=== PATIENT | female | born 1950 | race Caucasian/White ===

== ENCOUNTER 2020-01-07 10:48 | Day surgery (SDC) | payer MEDICARE, SELFPAY ==
[2020-01-07 11:14] VITALS: BP 155/85; PULSE 173; RESP 16; TEMP 36.7; O2SAT 97; BMI 15.4
[2020-01-07] MEDS: sodium chloride 0.9% 1,000 ML 30 ML IV (11:37)
--- NOTE | 2020-01-07 11:48 | P.ANESASSM_ITS ---
Pre-Anesthetic Assessment Pre-Anesthetic Assessment: Height/Weight: Height 1.63 m Weight 40.823 kg Temp Pulse Resp BP Pulse Ox 98.0 F 173 H 16 155/85 97 01/07/20 11:14 01/07/20 11:14 01/07/20 11:14 01/07/20 11:14 01/07/20 11:14 Preop Diagnosis: weight loss Proposed Procedure: Operation Date: 01/07/20 11:00 Proposed Procedures p EGD/colon 16386 [id number] R10.13(Not Applicable) - Sampson Burton MD s Colonoscopy(Not Applicable) - Sampson Burton MD Was Beta Clare taken within 24 hours: N/A Last intake: Intake Last Liquid Date 01/06/20 Last Liquid Time 19:30 Social: Social History: No alcohol and No tobacco Exam: Pre-Anes Outpt Exam: alert, clear to auscultation bilaterally and regular rate & rhythm Airway: Submandibular: WNL Cervical ROM: WNL MP: 2 Dentition: False History/ROS: No significant history except as noted and No significant complaints Pulmonary: Pulmonary: None reported CV/HEM: CV/HEM: HTN : : None reported Hepatic: Hepatic: None reported GI: GI: None reported Metabolic: Comments: weight loss Musc/skel: Musc/skel: Weakness Neuropsych: Neuropsych: None reported Comments: * developmental delay, CP Anesthetic Plan: ASA status: 3 Anesthesia: MAC Meds/Allergies Current Medications: Current Medications Generic Name Dose Route Start Last Admin Trade Name Freq PRN Reason Stop Dose Admin Sodium Chloride 1,000 mls @ 30 ml s/hr 01/07/20 11:15 01/07/20 11:37 Sodium Chloride 0.9% IV 01/08/20 11:14 30 mls/hr .Q24H WILSON Administration PFSH Anesthesia PFSH: Family History (Updated 01/05/20 @ 11:24 by ADRIAN Sam) Father Cancer Other Diabetes Social History (Updated 01/05/20 @ 11:23 by ADRIAN Sam) Smoking and tobacco status: never smoked History of recent travel: No Data Anesthesia Cardiac Studies: No Data to Display
[2020-01-07 12:18] VITALS: BP 115/65; PULSE 64; RESP 16; TEMP 36.6
--- NOTE | 2020-01-07 12:20 | ANE.PACU2 ---
Inpatient post-anesthesia follow up: Airway intact: Yes Vital signs: Temperature 98.0 F Pulse Rate 173 Respiratory Rate 16 Blood Pressure 155/85 Pulse Oximetry 97 Oxygen Delivery Me thod Room Air Oxygen Flow Rate Fraction of Inspir ed Oxygen Hydration adequate: Yes Nausea and vomiting: No Mental status: Baseline
[2020-01-07 12:33] VITALS: BP 122/70; PULSE 68; RESP 16; TEMP 36.7; O2SAT 98
[2020-01-10 05:57] LABS: H. Pylori / CLO Test Positive
--- NOTE | 2020-01-13 12:33 | P.HP_ITS ---
Same Day Surgery H&P Indication for Procedure/HPI DATE OF PROCEDURE: January 13, 2020 CHIEF COMPLAINT/INDICATIONFOR SURGICAL PROCEDURE: Pain PREOP DIAGNOSIS: weight loss PLANNED PROCEDRUE: Operation Date: 01/07/20 11:00 Proposed Procedures p EGD/colon 41019 [id number] R10.13(Not Applicable) - Sampson Burton MD s Colonoscopy(Not Applicable) - Sampson Burton MD Medications/Allergies* Home Medications Medication Instructions Recorded Confirmed Type bethanechol chloride 10 mg tablet 10 mg PO QID tab 12/27/19 01/07/20 History cetirizine 10 mg capsule 10 mg PO DAILY cap 12/27/19 01/07/20 History hydrocodone 10 mg-acetaminophen 1 tab PO Q8H PRN 12/27/19 01/07/20 History 325 mg tablet mirtazapine 15 mg tablet 15 mg PO DAILY 12/27/19 01/07/20 History modafinil 100 mg tablet 100 mg PO DAILY 12/27/19 01/07/20 History ofloxacin 0.3 % ear drops 10 drop EAR-BOTH DAILY 12/27/19 01/07/20 History oxybutynin chloride 10 mg 10 mg PO DAILY 12/27/19 01/07/20 History tablet,extended release 24 hr potassium chloride 10 mEq 10 meq PO TID tab 12/27/19 01/07/20 History tablet,extended release(part/cryst) propranolol 20 mg tablet 20 mg PO TID 12/27/19 01/07/20 History tramadol 50 mg tablet 50 mg PO Q6H PRN 12/27/19 01/07/20 History triamterene 37.5 1 tab PO DAILY 12/27/19 01/07/20 History mg-hydrochlorothiazide 25 mg tablet Allergies/Adverse Reactions Allergy/AdvReac Type Severity Reaction Status Date / Time No Known Allergies Allergy Verified 01/06/20 13:57 Pertinent History/Comorbid Conditions* Family History (Updated 01/05/20 @ 11:24 by ADRIAN Sam) Diabetes Cancer Father Social History Smoking and tobacco status: never smoked History of recent travel: No Pertinent Exam Findings alert, oriented x 3, clear to auscultation bilaterally, regular rate & rhythm, operative site marked and procedure specific exam findings Recommendations Surgery/Procedure today Coding Level of Care Code Acute Cardiac Technician for Chg Kina
== END 2020-01-07 12:55 | disposition home or self-care (01) ==
PROVIDERS: PCP Family Medicine; Visit Provider Internal Medicine
PROC: 0DJ08ZZ Inspection of Upper Intestinal Tract, Via Natural or Artificial Opening Endoscopic (ICD-10-PCS; CPT 43235; principal; 2020-01-07 11:00)
PROC: 0DJD8ZZ Inspection of Lower Intestinal Tract, Via Natural or Artificial Opening Endoscopic (ICD-10-PCS; CPT 45378; 2020-01-07 11:00)
DX: K29.50 Unspecified chronic gastritis without bleeding (principal); K57.30 Diverticulosis of large intestine without perforation or abscess without bleeding; R63.4 Abnormal weight loss; I10 Essential (primary) hypertension
CPT/HCPCS: 12345; 43239; 87077; G0121; J2704; J7030

== ENCOUNTER 2020-12-13 17:45 | Emergency (ER) | payer MEDICARE, MEDICAID, SELFPAY ==
[2020-12-13 18:12] VITALS: BP 133/82; PULSE 99; RESP 18; TEMP 36.8; O2SAT 95; BMI 12.9
--- NOTE | 2020-12-13 18:13 | ED_ITS ---
HPI - General Adult General: Chief complaint: Abdominal Pain Stated complaint: COVID +/AMS/CHEST PAIN/DIARRHEA Time Seen by Provider: 12/13/20 18:09 History of Present Illness: HPI narrative: This patient is a 70-year-old mentally handicapped patient presents to the emergency department concerns for Covid infection. Mild intermittent cough per family member but has no coughing and no respiratory symptoms in the emergency department. Reportedly the patient has had loose stool and yelling out that she thought her insides were coming out. Her mentation is normal for the patient's baseline. Family members are concerned because the patient has other family members in the home that are positive for Covid. The medical evaluation treat as needed Onset (ago): day(s) Associated symptoms: Deny chest pain, dyspnea, headache(s), nausea, rash, palpitations or vomiting Review of Systems General: Reports: 10 or more systems reviewed and unremarkable except in HPI and below Const: Denies: fever(s), chills, body aches or fatigue Eyes: Denies: change in vision or blurry vision ENMT: Denies: throat pain, hoarseness or mouth pain Card: Denies: chest pain, palpitations, irregular heart rhythm, edema, swelling of feet/ankles or lightheadedness Resp: Reports: non-productive cough; Denies: dyspnea, productive cough, wheezing or pain on inspiration GI: Reports: diarrhea; Denies: abdominal pain, nausea or vomiting : Denies: flank pain, difficulty voiding, dysuria, urinary frequency, urinary urgency or urinary hesitancy Musc: Denies: neck pain, back pain, extremity pain, extremity swelling, joint pain, joint swelling, joint redness, joint warmth or limited range of motion Skin/Breast: Denies: rash, pruritus, erythema or skin tenderness Neuro: Denies: headache(s), numbness in extremities or weakness in extremities Psych: Denies: anxiety or depression PFSH ED PFSH: Family History Father Cancer Other Diabetes Social History Smoking and tobacco status: never smoked History of recent travel: No Physical Exam Const: COMMON NORMALS: no acute distress, average body habitus, patient oriented x3, no limitations, healthy appearing, alert and well nourished GENERAL APPEARANCE: appears older than stated age NUTRITIONAL APPEARANCE: cachectic HENMT: COMMON NORMALS: normocephalic, atraumatic, hearing grossly normal bilaterally, external ears normal, EAC's normal, TM's normal bilaterally, Normal external nose present, Normal nasal mucous membranes and turbinates present, moist oral mucous membranes, oropharynx normal, dentition normal and gingiva normal HEAD & SCALP: normocephalic and atraumatic NOSE: Normal external nose present and Normal nasal mucous membranes and turbinates present EXTERNAL EAR: Yes external ears normal EXTERNAL AUDITORY CANAL: EAC's normal TYMPANIC MEMBRANE: TM's normal bilaterally Neck/C-Spine: COMMON NORMALS: full ROM, no lymphadenopathy, supple, no meningeal signs, no JVD, Thyroid normal and No carotid bruits THYROID: Thyroid normal Chest: COMMONS NORMALS: normal inspection of the chest, normal palpation of entire chest wall, normal inspection of the breasts and normal palpation of the breasts Breast/axilla inspection: Yes normal inspection of the breasts BREAST/AXILLA PALPATION: Yes normal palpation of the breasts Resp: COMMON NORMALS: normal respiratory effort, No retractions, No use of accessory muscles, clear to auscultation bilaterally and percussion normal AUSCULTATION: clear to auscultation bilaterally PERCUSSION: percussion normal Cardio: COMMON NORMALS: no JVD, regular rate, regular rhythm, S1 normal heart sound present, S2 normal heart sound present, No gallops present (Cardio), No clicks present (Cardio), No murmurs present (Cardio), No rub (Cardio) and Peripheral pulses 2+ throughout RATE: regular rate RHYTHM: regular rhythm HEART SOUNDS: S1 normal heart sound present and S2 normal heart sound present PERIPHERAL PULSES: Peripheral pulses 2+ throughout GI: COMMON NORMALS: Normal to inspection, nondistended, normoactive bowel sounds present, Soft to palpation, non-tender, No hepatosplenomegaly present, no masses and no bruits PALPATION: Yes Soft to palpation and Yes No hepatosplenomegaly present Back/Pelvis: COMMON NORMALS: thoracic and lumbar spine normal to inspection, no thoracic nor lumbar tenderness, thoraco-lumbar ROM normal and straight leg raise negative bilaterally Extremity: COMMON NORMALS: normal to inspection, full ROM, capillary refill normal, no joint enlargement, no clubbing, cyanosis or edema, no calf tenderness and no pedal edema Neuro: COMMON NORMALS: patient oriented x3 SENSORIUM/ORIENTATION: Yes alert MENINGEAL SIGNS: Yes no meningeal signs Course Reevaluation(s): Reevaluation #1: Patient is Covid positive. Other evaluation is unremarkable. Discussed at length with patient and family about findings. Patient is to encourage p.o. fluids get plenty rest. Follow-up with primary care physician in about a week to 10 days. Patient is to continue with his isolation with family who are other positive with Covid. Monitor respiratory status closely. Patient and family state understanding patient is discharged home Time: 19:44 Vital Signs: Vital signs: Vital Signs Temperature 98.2 F 12/13/20 18:12 Pulse Rate 99 12/13/20 18:12 Respiratory Rate 18 12/13/20 18:12 Blood Pressure 133/82 12/13/20 18:12 Pulse Oximetry 95 12/13/20 18:12 MDM - General Adult MDM Narrative: Medical decision making narrative: This patient is a 70-year-old mentally handicapped patient presents to the emergency department concerns for Covid infection. Mild intermittent cough per family member but has no coughing and no respiratory symptoms in the emergency department. Reportedly the patient has had loose stool and yelling out that she thought her insides were coming out. Her mentation is normal for the patient's baseline. Family members are concerned because the patient has other family members in the home that are positive for Covid. Patient is Covid positive. Other evaluation is unremarkable. Discussed at length with patient and family about findings. Patient is to encourage p.o. fluids get plenty rest. Follow-up with primary care physician in about a week to 10 days. Patient is to continue with his isolation with family who are other positive with Covid. Monitor respiratory status closely. Patient and family state understanding patient is discharged home Medical Records: Attestation: I reviewed the patient's medical records. Lab Data: Attestation: I reviewed the patient's lab results. Labs: Lab Results 12/13/20 12/13/20 12/13/20 Range/Units 18:38 18:42 18:42 WBC (4.0-10.0) 10^3/ uL RBC (4.1-5.3) 10^6/u L Hgb (11.5-15.3) g/dL Hct (37.0-47.0) % MCV (81-99) fL MCH (28.0-34.0) pg MCHC (30.0-36.0) g/dL RDW (12.1-15.1) % Plt Count (130-400) 10^3/c mm MPV (7.4-10.4) fL Neut % (Auto) % Lymph % (Auto) % [place] % (Auto) % Eos % (Auto) % Baso % (Auto) % Neut # (Auto) (1.8-7.7) 10^3/u L Lymph # (Auto) (0.8-4.8) 10^3/u L [place] # (Auto) (0.2-0.9) 10^3/u L Eos # (Auto) (0.0-0.8) 10^3/u L Baso # (Auto) (0.0-0.1) 10^3/u L Nucleated RBC % (a uto) % Nucleated RBCs # /100WBC Sodium (136-145) mmol/L Potassium (3.5-5.1) mmol/L Chloride (98-107) mmol/L Carbon Dioxide (22-29) mmol/L Anion Gap (5-19) BUN (8-23) mg/dL Creatinine (0.5-0.9) mg/dL GFR Calculation (90-130) mL/min Glucose (65-115) mg/dL Calculated Osmolal ity (285-295) mOsm/k g Calcium (8.5-10.5) mg/dL Total Bilirubin (0.15-1.2) mg/dL AST (0-32) U/L ALT (0-33) U/L Alkaline Phosphata se (35-105) IU/L Total Protein (6.6-8.7) g/dL Albumin (3.5-5.2) g/dL Globulin (1.3-4.6) g/dL Influenza Type A A g Negative (Negative) Influenza Type B A g Negative (Negative) SARS-CoV-2 Ag (Rap id) Positive H (Negative) Group A Strep Rapi d Negative (Negative) 12/13/20 12/13/20 Range/Units 18:46 18:46 WBC 2.9 L (4.0-10.0) 10^3/ uL RBC 4.38 (4.1-5.3) 10^6/u L Hgb 14.1 (11.5-15.3) g/dL Hct 44.0 (37.0-47.0) % MCV 100.5 H (81-99) fL MCH 32.2 (28.0-34.0) pg MCHC 32.0 (30.0-36.0) g/dL RDW 14.6 (12.1-15.1) % Plt Count 142 (130-400) 10^3/c mm MPV 10.9 H (7.4-10.4) fL Neut % (Auto) 73.4 % Lymph % (Auto) 15.9 % [place] % (Auto) 9.7 % Eos % (Auto) 0.0 % Baso % (Auto) 0.0 % Neut # (Auto) 2.12 (1.8-7.7) 10^3/u L Lymph # (Auto) 0.5 L (0.8-4.8) 10^3/u L [place] # (Auto) 0.3 (0.2-0.9) 10^3/u L Eos # (Auto) 0.0 (0.0-0.8) 10^3/u L Baso # (Auto) 0.0 (0.0-0.1) 10^3/u L Nucleated RBC % (a uto) 0 % Nucleated RBCs # 0.0 /100WBC Sodium 135 L (136-145) mmol/L Potassium 3.3 L (3.5-5.1) mmol/L Chloride 99 (98-107) mmol/L Carbon Dioxide 22 (22-29) mmol/L Anion Gap 17.3 (5-19) BUN 20 (8-23) mg/dL Creatinine 0.9 (0.5-0.9) mg/dL GFR Calculation 62.1 L (90-130) mL/min Glucose 110 (65-115) mg/dL Calculated Osmolal ity 283 L (285-295) mOsm/k g Calcium 8.1 L (8.5-10.5) mg/dL Total Bilirubin 0.2 (0.15-1.2) mg/dL AST 69 H (0-32) U/L ALT 27 (0-33) U/L Alkaline Phosphata se 108 H (35-105) IU/L Total Protein 6.4 L (6.6-8.7) g/dL Albumin 3.0 L (3.5-5.2) g/dL Globulin 3.4 (1.3-4.6) g/dL Influenza Type A A g (Negative) Influenza Type B A g (Negative) SARS-CoV-2 Ag (Rap id) (Negative) Group A Strep Rapi d (Negative) Imaging Data^: KUB: Attestation: I personally reviewed and interpreted this imaging study as follows: Radiologist's impression: FINDINGS: Gastrointestinal tract: Bowel gas pattern is unremarkable. No sign of obstruction. Intraperitoneal space: There is no intraperitoneal free air. Bones/joints: Bones are unremarkable. XR/XR abdomen min 2V [id number] IMPRESSION: No acute findings. EKG Data^: EKG 1: Attestation: I personally reviewed and interpreted this EKG as follows: EKG interpretation date: 12/13/20 EKG interpretation time: 18:16 Prior EKG tracings: not available for review Interpretation: Sinus tachycardia heart rate 102 nonspecific EKG Computer generated interpretation: Abdomen X-Ray 12/13/20 18:13 IMPRESSION: No acute findings. Discharge Plan Discharge Patient Disposition: Home Clinical Impression: COVID-19, Viral illness, Diarrhea Condition: Stable Prescriptions: No Action tramadol 50 mg tablet 50 mg PO Q6H PRN (Reason: Pain) RF: 0 hydrocodone-acetaminophen [[place]] 10-325 mg tablet 1 tab PO Q8H PRN (Reason: Pain) RF: 0 modafinil 100 mg tablet 100 mg PO DAILY RF: 0 propranolol 20 mg tablet 20 mg PO TID RF: 0 cetirizine 10 mg capsule 10 mg PO DAILY RF: 0 oxybutynin chloride 10 mg tablet extended release 24hr 10 mg PO DAILY RF: 0 potassium chloride 10 mEq tablet,ER particles/crystals 10 meq PO TID RF: 0 ofloxacin 0.3 % drops 10 drop EAR-BOTH DAILY RF: 0 mirtazapine [Remeron] 15 mg tablet 15 mg PO DAILY RF: 0 triamterene-hydrochlorothiazid 37.5-25 mg tablet 1 tab PO DAILY RF: 0 bethanechol chloride 10 mg tablet 10 mg PO QID RF: 0 pantoprazole 40 mg tablet,delayed release (DR/EC) 40 mg PO DAILY Qty: 30 RF: 8 metronidazole [Flagyl] 500 mg tablet 500 mg PO TID Qty: 30 RF: 0 doxycycline hyclate 100 mg tablet 100 mg PO BID 10 Days Qty: 20 RF: 0 Discharge Orders: Discharge ED (Routine); Ordered 12/13/20 Ordered By: Marty Angela Referrals: Rita Pruitt DO [Primary Care Provider] - Discharge Diet: Advance as tolerated Discharge Activity: Increase activity as tolerated Patient Instructions: Opioid Safety Activity Restrictions/Additional Instructions: Encourage p.o. fluids. Tylenol Motrin as needed for fever or pain. Pepto- Bismol as needed as needed as needed for diarrhea. Advance diet slowly as tolerated. Self-isolation with other Covid positive family members until all symptoms resolved. Return to the emergency department because she is more short of breath or have any significant respiratory issues. Otherwise follow-up with PCP in 7 to 10 days. Coding Level of Care Code ED Workers Compensation Paralegal for Tomas Fwd Exam Comprehensive
--- NOTE | 2020-12-13 18:13 | XRR_ITS ---
PROCEDURE INFORMATION: Exam: XR Abdomen Exam date and time: 12/13/2020 6:13 PM Age: 70 years old Clinical indication: Abdominal pain; Patient HX: Low abd pain x2days TECHNIQUE: Imaging protocol: XR of the abdomen. Views: 2 Views. Upright and supine views. COMPARISON: CT abdomen pelvis w con* [id number] 11/17/2017 11:10 AM FINDINGS: Gastrointestinal tract: Bowel gas pattern is unremarkable. No sign of obstruction. Intraperitoneal space: There is no intraperitoneal free air. Bones/joints: Bones are unremarkable. XR/XR abdomen min 2V [id number] IMPRESSION: No acute findings.
[2020-12-13] MEDS: sodium chloride 0.9% 500 ML IV (18:30)
[2020-12-13 18:54] LABS: Hemoglobin 14.1 g/dL (11.5-15.3); Lymphocytes # 0.5 10^3/uL (0.8-4.8); Lymphocytes % 15.9 %; Mean Corpuscular Hemoglobin 32.2 pg (28.0-34.0); Mean Corpuscular Volume 100.5 fL (81-99); Mean Platelet Volume 10.9 fL (7.4-10.4); Monocytes # 0.3 10^3/uL (0.2-0.9); Monocytes % 9.7 %; Neutrophils # 2.12 10^3/uL (1.8-7.7); Neutrophils % 73.4 %; Nucleated Red Blood Cells % 0 %; Platelet Count 142 10^3/cmm (130-400); Red Blood Count 4.38 10^6/uL (4.1-5.3); Red Cell Distribution Width 14.6 % (12.1-15.1); White Blood Count 2.9 10^3/uL (4.0-10.0)
[2020-12-13 19:13] LABS: Rapid Strep A Test Negative (Negative)
--- NOTE | 2020-12-13 19:13 | PC.NURSE ---
1900 Assumed care of patient.
[2020-12-13 19:25] LABS: Alanine Aminotransferase 27 U/L (0-33); Alkaline Phosphatase 108 IU/L (35-105); Anion Gap 17.3 (5-19); Aspartate Amino Transferase 69 U/L (0-32); Blood Urea Nitrogen 20 mg/dL (8-23); Calcium 8.1 mg/dL (8.5-10.5); Carbon Dioxide 22 mmol/L (22-29); Chloride 99 mmol/L (98-107); Globulin 3.4 g/dL (1.3-4.6); Glomerular Filtration Rate 62.1 mL/min (90-130); Glucose 110 mg/dL (65-115); Osmolality Calculated 283 mOsm/kg (285-295); Potassium 3.3 mmol/L (3.5-5.1); Sodium 135 mmol/L (136-145); Total Bilirubin 0.2 mg/dL (0.15-1.2); Total Protein 6.4 g/dL (6.6-8.7)
[2020-12-13 19:37] LABS: SARS Covid-2 Antigen Positive (Negative)
[2020-12-13 19:38] LABS: Influenza A by IFA Negative (Negative); Influenza B by IFA Negative (Negative)
[2020-12-13 20:49] VITALS: BP 127/78; PULSE 95; RESP 18; O2SAT 95
== END 2020-12-13 20:51 | disposition home or self-care (01) ==
PROVIDERS: Emergency Provider Emergency Medicine; PCP Family Medicine
DX: U07.1 COVID-19 (principal); R19.7 Diarrhea, unspecified
CPT/HCPCS: 74019; 80053; 85025; 87081; 87426; 87804; 87880; 96360; 99283; J7040

== ENCOUNTER → 2024-03-25 14:20 | Outpatient (BNVA) | payer MEDICARE, MEDICAID, SELFPAY | PROVIDERS: PCP Family Medicine; Visit Provider Student in an Organized Health Care Education/Training Program | DX: K29.70 Gastritis, unspecified, without bleeding (principal) | CPT/HCPCS: 99204 ==

== ENCOUNTER 2024-03-30 07:34 | Day surgery (SDC) | payer MEDICARE, MEDICAID, SELFPAY ==
--- NOTE | 2024-03-30 08:07 | ANES.PREANE2 ---
Pre-Anesthetic Assessment Height/Weight: Height 1.63 m Preop Diagnosis: GERD, abdominal pain Operation Date: 03/30/24 08:30 Proposed Procedures p EGD 54168, K29.7(Not Applicable) - Chance Hallman MD Familial anesthetic complications: none Was Beta Clare taken within 24 hours: N/A Was Clonidine taken within 24 hours: N/A Social No alcohol and No tobacco Exam alert and clear to auscultation bilaterally Airway Mallampati: Class II Dentition: false History/ROS No significant history except as noted Pulmonary None reported CV/HEM None reported None reported Hepatic None reported GI Gastroesophageal Reflux Disease abdominal pain Metabolic None reported Musc/skel None reported Neuropsych developmental delay Anesthetic Plan ASA status: 3 Anesthesia: Anesthesia Evaluation and MAC Risk of > 500 ml blood loss (7ml/kg in children): No Medications/Allergies Home Medications Medication Instructions Recorded Confirmed Last Taken Type potassium chloride 10 mEq 10 meq PO TID 12/27/19 03/29/24 03/29/24 History tablet,extended release(part/cryst) pantoprazole 40 mg tablet,delayed 40 mg PO DAILY #30 tabs 01/12/20 03/29/24 03/29/24 Rx release bumetanide 0.5 mg tablet 0.5 mg PO BID PRN Edema 03/29/24 03/29/24 03/29/24 History oxycodone 15 mg tablet 15 mg PO QID PRN Pain 03/29/24 03/29/24 03/29/24 History Allergies Allergy/AdvReac Type Severity Reaction Status Date / Time No Known Allergies Allergy Verified 03/29/24 08:28 [facility] Anesthesia Family History Father Cancer Other Diabetes Social History Smoking and tobacco/nicotine status: never used tobacco/nicotine Substance/Drug Use: never Data Anesthesia Cardiac Studies: No Data to Display
[2024-03-30 08:16] VITALS: TEMP 36.8; BMI 15.4
[2024-03-30] MEDS: sodium chloride 0.9% 1,000 ML 30 ML IV (08:28)
--- NOTE | 2024-03-30 08:59 | W.PM.OPSUD ---
Surgery/Procedure H&P Update DATE OF PROCEDURE: March 30, 2024 DATE H&P PERFORMED: 03/25/24 H&P UPDATE INFORMATION: I have reviewed H&P completed within last 30 days, I have examined patient prior to procedure and No changes to prior documentation PREOP DIAGNOSIS: GERD, abdominal pain PLANNED PROCEDURE: Operation Date: 03/30/24 08:30 Proposed Procedures p EGD 80820, K29.7(Not Applicable) - Chance Hallman MD
[2024-03-30 09:14] VITALS: BP 108/64; PULSE 60; RESP 18; TEMP 36.3; O2SAT 90
[2024-03-30 09:24] VITALS: BP 132/69; PULSE 45; RESP 16; O2SAT 90
[2024-03-30 09:34] VITALS: BP 128/72; PULSE 87; RESP 16; O2SAT 90
--- NOTE | 2024-03-30 09:36 | ANE.PACU2 ---
Inpatient post-anesthesia follow up: Airway intact: Yes Vital signs: Temperature 97.3 F Pulse Rate 87 Respiratory Rate 16 Blood Pressure 128/72 Pulse Oximetry 90 Oxygen Delivery Me thod Room Air Oxygen Flow Rate 4 Fraction of Inspir ed Oxygen Hydration adequate: Yes Nausea and vomiting: No Pain level: 1 Mental status: Baseline
--- NOTE | 2024-03-30 09:39 | SUR.PHASEII ---
Pt fell earlier this week at home and bruising to right knee noted to be worse today. Pt to ER via wheelchair with family for evaluation of right knee.
== END 2024-03-30 09:37 | disposition home or self-care (01) ==
PROVIDERS: PCP Family Medicine; Visit Provider Student in an Organized Health Care Education/Training Program
PROC: 0DJ08ZZ Inspection of Upper Intestinal Tract, Via Natural or Artificial Opening Endoscopic (ICD-10-PCS; CPT 43235; principal; 2024-03-30 08:30)
DX: K29.70 Gastritis, unspecified, without bleeding (principal); K44.9 Diaphragmatic hernia without obstruction or gangrene
CPT/HCPCS: 43239; 88305; J2704; J7030

== ENCOUNTER 2024-03-30 09:08 | Emergency (ER) | payer MEDICARE, MEDICAID, SELFPAY ==
--- NOTE | 2024-03-30 09:28 | XRR_ITS ---
PROCEDURE INFORMATION: Exam: XR Right Knee Exam date and time: 03/30/2024 9:48 AM Age: 73 years old Clinical indication: Pain; Knee; Right TECHNIQUE: Imaging protocol: Radiologic exam of the right knee. Views: 3 views. COMPARISON: No relevant prior studies available. FINDINGS: Bones/joints: Prior surgery with 3 screws in the proximal tibia. The bones are diffusely osteopenic. There is tricompartmental degenerative change. The patella has an unusual appearance being heterogeneous though the cause and significance is uncertain. Suspect small joint effusion. Soft tissues: There does appear to be superficial soft tissue swelling anterior to the patella and patellar tendon. Calcification in the patellar tendon may be related to a prior injury. XR/XR knee RT 3V* [id number] IMPRESSION: 1. Degenerative and postoperative changes. 2. Soft tissue swelling. 3. Unusual appearance to the patella, cause and significance uncertain.
[2024-03-30 09:51] VITALS: BP 146/87; PULSE 95; RESP 20; TEMP 37; O2SAT 99; BMI 18.8
--- NOTE | 2024-03-30 09:59 | XRR_ITS ---
PROCEDURE INFORMATION: Exam: XR Right Hip Exam date and time: 03/30/2024 11:12 AM Age: 73 years old Clinical indication: Hip pain; Right hip; Prior surgery; Surgery date: 6+ months TECHNIQUE: Imaging protocol: Radiologic exam of the right hip. Views: 1 view hip with pelvis when performed. COMPARISON: CR XR abdomen min 2V [id number] 12/13/2020 6:38 PM FINDINGS: Bones/joints: Prior right hip arthroplasty. Asymmetric positioning of the acetabular cup within the bony acetabulum, grossly unchanged from the prior comparison exam. No acute fracture. Soft tissues: No acute soft tissue abnormality. XR/XR hip RT 2-3V wo/w pel* [id number] IMPRESSION: No acute osseous abnormality.
--- NOTE | 2024-03-30 11:14 | W.ED.GENADLT ---
HPI - General Adult General: Chief complaint: Extremity Injury, Lower Stated complaint: pain in right knee Time Seen by Provider: 03/30/24 09:24 Source: family Mode of arrival: wheelchair Limitations: no limitations History of Present Illness: Patient is a 73-year-old female presents to ED today along with 2 family members for evaluation of right knee ecchymosis and swelling and reported pain to her right hip as well as burning with urination. Patient primarily is nonverbal but will occasionally speak. Family states she was over in GI receiving an endoscopy due to not wanting to eat or drink much and weight loss. Family states she tried to get out of bed at some point and twisted her right leg. Family states when she has done this previously she fractured her hip/pelvis. Family has noticed some swelling and bruising to the right knee from a previous fall. She reportedly falls frequently. Family states she urinated the other day and then grabbed herself and stated it burned. They would like her checked for a UTI. They reports she has had decreased oral intake of food/liquid thus why the endoscopy was performed. Onset (ago): hour(s) Location: lower extremity Relieving factors: immobilization Exacerbating factors: movement Treatments prior to arrival: none Related Data Home Medications Medication Instructions Recorded Confirmed potassium chloride 10 mEq 10 meq PO TID 12/27/19 03/30/24 tablet,extended release(part/cryst) bumetanide 0.5 mg tablet 0.5 mg PO BID PRN Edema 03/29/24 03/30/24 oxycodone 15 mg tablet 15 mg PO QID PRN Pain 03/29/24 03/30/24 omeprazole 20 mg capsule,delayed 20 mg PO BID 03/30/24 03/30/24 release sucralfate 1 gram tablet 1 g PO QID 03/30/24 03/30/24 Previous Rx's Medication Instructions Recorded nitrofurantoin 100 mg PO BID 7 days #14 caps 03/30/24 monohydrate/macrocrystals 100 mg capsule (Macrobid) Allergies Allergy/AdvReac Type Severity Reaction Status Date / Time No Known Allergies Allergy Verified 03/29/24 08:28 Review of Systems General: Reports: ROS unobtainable due to medical condition, ROS unobtainable due to mental status and Other (pt is primarily [id number] does not answer any of my questions) PFSH ED PFSH: Family History Father Cancer Other Diabetes Social History Smoking and tobacco/nicotine status: never used tobacco/nicotine Substance/Drug Use: never Physical Exam Const: COMMON NORMALS: no acute distress and alert GENERAL APPEARANCE: cooperative and frail appearing ORIENTATION/CONSCIOUSNESS: Yes awake HENMT: COMMON NORMALS: normocephalic and atraumatic HEAD & SCALP: normal to inspection, normocephalic and atraumatic Resp: COMMON NORMALS: normal respiratory effort and clear to auscultation bilaterally AUSCULTATION: clear to auscultation bilaterally Cardio: COMMON NORMALS: regular rate and regular rhythm RATE: regular rate RHYTHM: regular rhythm GI: COMMON NORMALS: Soft to palpation AUSCULTATION: Yes normoactive bowel sounds PALPATION: Yes Soft to palpation Back/Pelvis: COMMON NORMALS: thoracic and lumbar spine normal to inspection Extremity: COMMON NORMALS: capillary refill normal, no calf tenderness and no pedal edema GENERAL: Yes normal exam except as noted RIGHT LOWER EXTREMITY: Yes hip joint (tender with ROM; leg is not shortened or rotated) Right hip: Yes inspection (normal gross inspection) and Yes neurovascular exam (normal) and Yes knee joint (ecchymosis and effusion anterior R knee) Right knee: Yes ROM (fairly good ROM; ROM to knee seemingly causes R hip pain) and Yes neurovascular exam (normal) Neuro: COMMON NORMALS: moves all extremities, no focal motor deficits and no sensory deficits noted SENSORIUM/ORIENTATION: Yes alert Course Vital Signs: Vital signs: Vital Signs Temperature 98.6 F 03/30/24 09:51 Pulse Rate 104 H 03/30/24 12:37 Respiratory Rate 18 03/30/24 12:37 Blood Pressure 146/87 03/30/24 09:51 Pulse Oximetry 90 03/30/24 12:37 Oxygen Delivery Me thod Room Air 03/30/24 12:37 [facility] - General Adult Medical Decision Making Patient 73-year-old female here for complaints of right knee and hip pain. Family was also concerned for possible UTI. She was recently seen by her PCP and had endoscopy ordered which was performed today due to decreased oral intake and weight loss. Clinically patient is very frail appearing. Her blood work showing multiple nonspecific abnormalities but none that require emergent workup. Her UA was slightly suspicious for UTI with trace leukocyte esterase, 5-10 WBCs, 3+ bacteria. This was a catheterized specimen. She will be placed on antibiotics for this. I think based on her symptoms of weight loss and blood work today she needs to follow-up with her primary care provider for rule out malignancy. Return to ED precautions given. Medical Records I reviewed the patient's medical records. Lab Data I reviewed the patient's lab results. 03/30/24 12:04 03/30/24 12:04 Radiology Impressions Knee X-Ray 03/30/24 09:28 IMPRESSION: 1. Degenerative and postoperative changes. 2. Soft tissue swelling. 3. Unusual appearance to the patella, cause and significance uncertain. Hip/Pelvis X-Ray 03/30/24 09:59 IMPRESSION: No acute osseous abnormality. Laboratory Results WBC 6.14 10^3/uL (3.29-11.43) 03/30/24 12:04 RBC 3.46 10^6/uL (3.85-5.65) L 03/30/24 12:04 Hgb 11.80 g/dL (11.27-16.99) 03/30/24 12:04 Hct 37.6 % (36-47) 03/30/24 12:04 MCV 108.7 fl (85-98) H 03/30/24 12:04 MCH 34.1 pg (27-33) H 03/30/24 12:04 MCHC 31.4 g/dL (30-55) 03/30/24 12:04 RDW 16.7 % (12.1-15.1) H 03/30/24 12:04 Plt Count 152 10^3/cmm (157-399) L 03/30/24 12:04 MPV 10.7 fL (7.4-10.4) H 03/30/24 12:04 Neut % (Auto) 83.9 % 03/30/24 12:04 Lymph % (Auto) 10.1 % 03/30/24 12:04 Mcdonald % (Auto) 5.5 % 03/30/24 12:04 Eos % (Auto) 0.0 % 03/30/24 12:04 Baso % (Auto) 0.2 % 03/30/24 12:04 Neut # (Auto) 5.15 10^3/uL (1.8-7.7) 03/30/24 12:04 Lymph # (Auto) 0.6 10^3/uL (0.8-4.8) L 03/30/24 12:04 Mcdonald # (Auto) 0.3 10^3/uL (0.2-0.9) 03/30/24 12:04 Eos # (Auto) 0.0 10^3/uL (0.0-0.8) 03/30/24 12:04 Baso # (Auto) 0.0 10^3/uL (0.0-0.1) 03/30/24 12:04 Nucleated RBC % (auto) 0 % 03/30/24 12:04 Nucleated RBCs # 0.0 /100WBC 03/30/24 12:04 Sodium 143 mmol/L (136-145) 03/30/24 12:04 Potassium 4.8 mmol/L (3.5-5.1) 03/30/24 12:04 Chloride 104 mmol/L (98-107) 03/30/24 12:04 Carbon Dioxide 26 mmol/L (22-29) 03/30/24 12:04 Anion Gap 17.8 (5-19) 03/30/24 12:04 BUN 24 mg/dL (8-23) H 03/30/24 12:04 Creatinine 1.1 mg/dL (0.5-0.9) H 03/30/24 12:04 GFR Calculation Not Reportable 03/30/24 12:04 Glucose 178 mg/dL (65-115) H 03/30/24 12:04 Calculated Osmolality 304 mOsm/kg (285-295) H 03/30/24 12:04 Calcium 8.3 mg/dL (8.5-10.5) L 03/30/24 12:04 Total Bilirubin 0.4 mg/dL (0.15-1.2) 03/30/24 12:04 AST 22 U/L (0-32) 03/30/24 12:04 ALT 10 U/L (0-33) 03/30/24 12:04 Alkaline Phosphatase 164 U/L (35-105) H 03/30/24 12:04 Total Protein 6.1 g/dL (6.6-8.7) L 03/30/24 12:04 Albumin 2.8 g/dL (3.5-5.2) L 03/30/24 12:04 Globulin 3.3 g/dL (1.3-4.6) 03/30/24 12:04 Urine Color Yellow (Yellow) 03/30/24 10: Urine Appearance Clear (CLEAR) 03/30/24 10: Urine pH 6.0 (5-7) 03/30/24 10: Ur Specific [place] 1.025 (1.005-1.030) 03/30/24 10: Urine Protein 4+ (Negative) A 03/30/24 10: Urine Glucose (UA) Negative (Normal) 03/30/24 10: Urine Ketones Trace (Negative) 03/30/24 10: Urine Blood Negative (Negative) 03/30/24 10: Urine Nitrate Negative (Negative) 03/30/24 10: Urine Bilirubin Negative (Negative) 03/30/24 10: Urine Urobilinogen 1.0 mg/dL (Negative) 03/30/24 10:29 Ur Leukocyte Esterase Trace (Negative) A 03/30/24 10: Urine RBC 0-4 /hpf (0-2) H 03/30/24 10: Urine WBC 5-10 /hpf (0-5) H 03/30/24 10:29 Ur Squamous Epith Cells 0-4 /hpf (0-5) H 03/30/24 10: Amorphous Sediment Not Reportable 03/30/24 10: Urine Bacteria 3+ /hpf (NONE) H 03/30/24 10: Urine Mucus 1+ /hpf 03/30/24 10:29 Ur Oval Fat Bodies 1+ /hpf 03/30/24 10:29 All radiology interpretation(s) finalized by discharge Discharge Plan Discharge Patient Disposition: Home Clinical Impression: Acute UTI Injury of knee, right Qualifiers: Encounter type: initial encounter Qualified Code(s): S89.91XA - Unspecified injury of right lower leg, initial encounter Condition: Stable Prescriptions: New nitrofurantoin monohyd/m-cryst [Macrobid] 100 mg capsule 100 mg PO BID 7 Days Qty: 14 0RF Rx Instructions: must administer with a meal/food No Action potassium chloride 10 mEq tablet,ER particles/crystals 10 meq PO TID oxycodone 15 mg tablet 15 mg PO QID PRN (Reason: Pain) bumetanide 0.5 mg tablet 0.5 mg PO BID PRN (Reason: Edema) sucralfate 1 gram tablet 1 g PO QID omeprazole 20 mg capsule,delayed release(DR/EC) 20 mg PO BID Discharge Orders: Discharge ED (Routine); Ordered 03/30/24 Ordered By: Marcelina Lyons Referrals: Rita Pruitt DO [Primary Care Provider] - Activity Restrictions/Additional Instructions: As we discussed x-rays of patient's knee and hip were negative for acute fractures. Patient needs to continue to follow-up with her primary care provider for further evaluation of her not eating/drinking and weight loss. The patient with unexplained weight loss needs to be evaluated for malignancy. Patient was found to have a urinary tract infection today. She will be placed on antibiotics for this. She needs to return the emergency department for onset of fevers, vomiting, generally feeling worse or unwell, or any other concerns you may have. Coding Level of Care Code ED Gum Puller for Tomas Castanon
--- NOTE | 2024-03-30 11:48 | PC.PHAR ---
[facility] [place] pt hasn't had any medications today. Med list verified with [facility] Gustavo Flood.
[2024-03-30 12:10] LABS: Basophils % 0.2 %; Hematocrit 37.6 % (36-47); Lymphocytes # 0.6 10^3/uL (0.8-4.8); Lymphocytes % 10.1 %; Mean Corpuscular HGB Conc 31.4 g/dL (30-55); Mean Corpuscular Hemoglobin 34.1 pg (27-33); Mean Corpuscular Volume 108.7 fl (85-98); Mean Platelet Volume 10.7 fL (7.4-10.4); Monocytes # 0.3 10^3/uL (0.2-0.9); Monocytes % 5.5 %; Neutrophils # 5.15 10^3/uL (1.8-7.7); Neutrophils % 83.9 %; Nucleated Red Blood Cells % 0 %; Platelet Count 152 10^3/cmm (157-399); Red Blood Count 3.46 10^6/uL (3.85-5.65); Red Cell Distribution Width 16.7 % (12.1-15.1); White Blood Count 6.14 10^3/uL (3.29-11.43)
[2024-03-30 12:27] LABS: Alanine Aminotransferase 10 U/L (0-33); Albumin Level 2.8 g/dL (3.5-5.2); Alkaline Phosphatase 164 U/L (35-105); Anion Gap 17.8 (5-19); Aspartate Amino Transferase 22 U/L (0-32); Blood Urea Nitrogen 24 mg/dL (8-23); Calcium 8.3 mg/dL (8.5-10.5); Carbon Dioxide 26 mmol/L (22-29); Chloride 104 mmol/L (98-107); Creatinine Clr Calc Pharmacy 38.5173; Globulin 3.3 g/dL (1.3-4.6); Glucose 178 mg/dL (65-115); Osmolality Calculated 304 mOsm/kg (285-295); Potassium 4.8 mmol/L (3.5-5.1); Sodium 143 mmol/L (136-145); Total Bilirubin 0.4 mg/dL (0.15-1.2); Total Protein 6.1 g/dL (6.6-8.7)
[2024-03-30 12:37] VITALS: PULSE 104; RESP 18; O2SAT 90
[2024-03-30 12:54] LABS: Bilirubin Urine Negative (Negative); Blood Urine Negative (Negative); Glucose Urine UA Negative (Normal); Ketones Urine Trace (Negative); Leukocyte Esterase Urine Trace (Negative); Nitrate Urine Negative (Negative); Protein Urine 4+ (Negative); Specific Gravity, Urine 1.025 (1.005-1.030); Urine Appearance Clear (CLEAR); Urine Color Yellow (Yellow)
[2024-03-30 13:06] LABS: UA Manual Slide Review YES; UA Slide Review UA Slide Review Perf
--- NOTE | 2024-03-30 13:06 | PC.NURSE ---
aleida okayed pt to eat and drink, pt given sprite and jello. family feeding pt.
[2024-03-30 13:07] LABS: Add Urine Microscopic? YES
[2024-03-30 13:08] LABS: Bacteria Urine 3+ /hpf; Mucus Urine 1+ /hpf; Oval Fat Bodies Urine 1+ /hpf; RBC Urine 0-4 /hpf (0-2); Squamous Epithelial Cell Urine 0-4 /hpf (0-5)
[2024-03-30 13:09] LABS: Add Urine Culture? No
[2024-03-30] MEDS: cefTRIAXone 1,000 MG in water for injection-sterile 2.1 ML 2.1 MG IM (13:33)
[2024-03-30 14:24] VITALS: BP 135/91; PULSE 101; O2SAT 91
== END 2024-03-30 14:25 | disposition home or self-care (01) ==
PROVIDERS: Emergency Provider Physician Assistant; PCP Family Medicine
DX: S89.91XA Unspecified injury of right lower leg, initial encounter (principal); N39.0 Urinary tract infection, site not specified; X58.XXXA Exposure to other specified factors, initial encounter
CPT/HCPCS: 36415; 73502; 73562; 80053; 81001; 85025; 87086; 96372; 99284; J0696

== ENCOUNTER 2024-04-01 13:52 | Emergency (ER) | payer MEDICARE, MEDICAID, SELFPAY ==
[2024-04-01 13:58] VITALS: BP 161/91; PULSE 99; RESP 18; TEMP 36.8; O2SAT 92
--- NOTE | 2024-04-01 14:00 | XR_ITS ---
WS: [id number] Portable AP upright chest, 04/01/2024 Clinical Data: cp Comparison: Two-view chest, 02/23/2010 Findings: There is opacity of the right lung which probably represents a large right pleural effusion . The patient is rotated and there is a shift of the heart and mediastinum from left to right. The le ft lung is probably clear. The heart size cannot be evaluated because the right heart border is obscu red. The aortic arch shows tortuosity and dilatation. No pneumothorax is seen. The pulmonary vascular ity is not increased. XR/XR chest 1V portable [id number] Impression: 1. Opacity of right lung which probably represents a large right pleural effusi on with possible shift of the heart and mediastinum from left to right. Pneumon ia and atelectasis of the right lung may also be present. 2. Possible cardiomegaly with atherosclerosis.
--- NOTE | 2024-04-01 14:17 | W.ED.AMS ---
Documented by User: Carmen Hernandez MD 04/01/24 17:36 HPI - Altered Mental Status General: Chief Complaint: Altered Mental Status Stated Complaint: AMS Time Seen by Provider: 04/01/24 13:53 Source: EMS Mode of arrival: EMS Limitations: altered mental status Related Data Home Medications Medication Instructions Recorded Confirmed potassium chloride 10 mEq 10 meq PO TID 12/27/19 03/30/24 tablet,extended release(part/cryst) bumetanide 0.5 mg tablet 0.5 mg PO BID PRN Edema 03/29/24 03/30/24 oxycodone 15 mg tablet 15 mg PO QID PRN Pain 03/29/24 03/30/24 omeprazole 20 mg capsule,delayed 20 mg PO BID 03/30/24 03/30/24 release sucralfate 1 gram tablet 1 g PO QID 03/30/24 03/30/24 Previous Rx's Medication Instructions Recorded nitrofurantoin 100 mg PO BID 7 days #14 caps 03/30/24 monohydrate/macrocrystals 100 mg capsule (Macrobid) Allergies Allergy/AdvReac Type Severity Reaction Status Date / Time No Known Allergies Allergy Verified 03/29/24 08:28 Review of Systems General: Reports: ROS unobtainable due to mental status PFSH ED PFSH: Family History Father Cancer Other Diabetes Social History Smoking and tobacco/nicotine status: never used tobacco/nicotine Substance/Drug Use: never Physical Exam Const: COMMON NORMALS: negative for patient oriented x3 HENMT: COMMON NORMALS: normocephalic and atraumatic HEAD & SCALP: normocephalic and atraumatic Eye: COMMON NORMALS: conjunctivae normal CONJUNCTIVA: Yes conjunctivae normal Neck/C-Spine: COMMON NORMALS: full ROM and supple Chest: COMMONS NORMALS: normal inspection of the chest Resp: COMMON NORMALS: normal respiratory effort, No retractions, No use of accessory muscles and clear to auscultation bilaterally AUSCULTATION: clear to auscultation bilaterally Cardio: COMMON NORMALS: regular rate, regular rhythm and No murmurs present (Cardio) RATE: regular rate RHYTHM: regular rhythm GI: COMMON NORMALS: Normal to inspection, nondistended, normoactive bowel sounds present, Soft to palpation, non-tender and no masses PALPATION: Yes Soft to palpation Extremity: COMMON NORMALS: normal to inspection and full ROM Neuro: COMMON NORMALS: moves all extremities; negative for patient oriented x3 Psych: COMMON NORMALS: negative for mental status grossly normal Skin: COMMON NORMALS: no rashes or lesions noted and no wounds GENERAL SKIN EXAM: no rashes or lesions noted Course Vital Signs: Vital signs: Vital Signs Temperature 98.2 F 04/01/24 13:58 Pulse Rate 99 04/01/24 17:50 Respiratory Rate 18 04/01/24 13:58 Blood Pressure 147/86 04/01/24 17:00 Pulse Oximetry 99 04/01/24 17:50 Oxygen Delivery Me thod Nasal Cannula 04/01/24 17:50 Oxygen Flow Rate 5 04/01/24 17:50 MDM - Altered Mental Status Medical Decision Making Patient presents here with increased altered mental status she is also had hypoxia here is requiring 5 L oxygen . EKGs here show no signs of ST elevation her D-dimer is quite elevated so was her BNP patient here is nonverbal but concerned she may have a pulmonary embolism we will get a CT angio chest patient started on a heparin drip here care turned over to Dr. Fonseca to follow-up on the CT of the chest. Patient also has an elevated troponin we will trend Medical Records I reviewed the patient's medical records. Lab Data I reviewed the patient's lab results. 04/01/24 15:04 04/01/24 15:04 Radiology Impressions Chest X-Ray 04/01/24 14:00 Impression: 1. Opacity of right lung which probably represents a large right pleural effusion with possible shift of the heart and mediastinum from left to right. Pneumonia and atelectasis of the right lung may also be present. 2. Possible cardiomegaly with atherosclerosis. Head CT 04/01/24 17:36 IMPRESSION: No acute intracranial process. Chronic senescent changes. If there is continued clinical concern for an acute ischemic event then follow up with a brain MRI examination is recommended. Laboratory Results WBC 9.41 10^3/uL (3.29-11.43) 04/01/24 15:04 RBC 3.26 10^6/uL (3.85-5.65) L 04/01/24 15:04 Hgb 11.00 g/dL (11.27-16.99) L 04/01/24 15:04 Hct 34.6 % (36-47) L 04/01/24 15:04 MCV 106.1 fl (85-98) H 04/01/24 15:04 MCH 33.7 pg (27-33) H 04/01/24 15:04 MCHC 31.8 g/dL (30-55) 04/01/24 15:04 RDW 16.8 % (12.1-15.1) H 04/01/24 15:04 Plt Count 146 10^3/cmm (157-399) L 04/01/24 15:04 MPV 11.2 fL (7.4-10.4) H 04/01/24 15:04 Neut % (Auto) 90.6 % 04/01/24 15:04 Lymph % (Auto) 2.9 % 04/01/24 15:04 [place] % (Auto) 5.5 % 04/01/24 15:04 Eos % (Auto) 0.0 % 04/01/24 15:04 Baso % (Auto) 0.0 % 04/01/24 15:04 Neut # (Auto) 8.53 10^3/uL (1.8-7.7) H 04/01/24 15:04 Lymph # (Auto) 0.3 10^3/uL (0.8-4.8) L 04/01/24 15:04 [place] # (Auto) 0.5 10^3/uL (0.2-0.9) 04/01/24 15:04 Eos # (Auto) 0.0 10^3/uL (0.0-0.8) 04/01/24 15:04 Baso # (Auto) 0.0 10^3/uL (0.0-0.1) 04/01/24 15:04 Nucleated RBC % (auto) 0.9 % 04/01/24 15:04 Nucleated RBCs # 0.1 /100WBC 04/01/24 15:04 D-Dimer 12.37 ug/mLFEU (0-0.59) H 04/01/24 15:04 Specimen Type Arterial 04/01/24 14:50 Sample Site Radial, right 04/01/24 14:50 ABG pH 7.56 (7.35-7.45) H 04/01/24 14:50 ABG pCO2 25.7 mmHg (35-45) L 04/01/24 14:50 ABG pO2 84.9 mmHg (80.0-100.0) 04/01/24 14:50 ABG HCO3 23.2 mmol/L (22-26) 04/01/24 14:50 ABG Base Excess 1.9 mmol/L (-2.0-2.0) 04/01/24 14:50 [place] Test Pos 04/01/24 14:50 Hematocrit 34.7 % (37-47) L 04/01/24 14:50 O2 Delivery Device Not Reportable 04/01/24 14:50 Back Hoe Machine Operator ID [email or web address] 04/01/24 14:50 Blood Gas Notified Time 1505 04/01/24 14:50 Sodium 139 mmol/L (136-145) 04/01/24 15:04 Potassium 4.8 mmol/L (3.5-5.1) 04/01/24 15:04 Chloride 102 mmol/L (98-107) 04/01/24 15:04 Carbon Dioxide 23 mmol/L (22-29) 04/01/24 15:04 Anion Gap 18.8 (5-19) 04/01/24 15:04 BUN 29 mg/dL (8-23) H 04/01/24 15:04 Creatinine 1.4 mg/dL (0.5-0.9) H 04/01/24 15:04 GFR Calculation Not Reportable 04/01/24 15:04 Glucose 133 mg/dL (65-115) H 04/01/24 15:04 POC Glucose 79 mg/dL (70-110) 04/01/24 18:31 Calculated Osmolality 296 mOsm/kg (285-295) H 04/01/24 15:04 Calcium 8.2 mg/dL (8.5-10.5) L 04/01/24 15:04 Total Bilirubin 0.7 mg/dL (0.15-1.2) 04/01/24 15:04 AST 23 U/L (0-32) 04/01/24 15:04 ALT 12 U/L (0-33) 04/01/24 15:04 Alkaline Phosphatase 179 U/L (35-105) H 04/01/24 15:04 Troponin T Baseline 118 ng/L (0-10) H* 04/01/24 15:04 Troponin T 120 Minute 127.3 ng/L (0-10) H 04/01/24 17:40 Delta Troponin T 9.3 ABS# (0-10) 04/01/24 17:40 NT-Pro-B Natriuret Pep > 25420 pg/mL (0-125) H 04/01/24 15:04 Total Protein 5.4 g/dL (6.6-8.7) L 04/01/24 15:04 Albumin 2.9 g/dL (3.5-5.2) L 04/01/24 15:04 Globulin 2.5 g/dL (1.3-4.6) 04/01/24 15:04 Lipase 12 U/L (13-60) L 04/01/24 15:04 Urine Color [place] (Yellow) A 04/01/24 17: Urine Appearance Clear (CLEAR) 04/01/24 17:28 Urine pH 5.5 (5-7) 04/01/24 17:28 Ur Specific [place] 1.026 (1.005-1.030) 04/01/24 17:28 Urine Protein 4+ (Negative) A 04/01/24 17: Urine Glucose (UA) Negative (Normal) 04/01/24 17:28 Urine Ketones Trace (Negative) 04/01/24 17: Urine Blood 1+ (Negative) A 04/01/24 17: Urine Nitrate Negative (Negative) 04/01/24 17: Urine Bilirubin 1+ (Negative) H 04/01/24 17:28 Urine Urobilinogen 1.0 mg/dL (Negative) 04/01/24 17:28 Ur Leukocyte Esterase Trace (Negative) A 04/01/24 17: Urine RBC 3-5 /hpf (0-2) 04/01/24 17:28 Urine WBC 0-5 /hpf (0-5) 04/01/24 17:28 Ur Squamous Epith Cells 0-5 /hpf (0-5) 04/01/24 17:28 Amorphous Sediment Not Reportable 04/01/24 17:28 Urine Bacteria None seen /hpf (NONE) 04/01/24 17:28 Hyaline Casts 6.61 /lpf 04/01/24 17:28 All radiology interpretation(s) finalized by discharge EKG Data EKG 1: I personally reviewed and interpreted this EKG as follows: EKG interpretation date: 04/01/24 EKG interpretation time: 14:18 Interpretation: nsr [address] elevation qrs 129 qtc 427 EKG 2: I personally reviewed and interpreted this EKG as follows: EKG interpretation date: 04/01/24 EKG interpretation time: 15:57 Interpretation: nsr hr [address] elevation qrs 133 qtc 425 Discharge Plan Discharge Patient Disposition: Clinical Impression: Cardiac arrest, Coding Level of Care Code ED Retail Personal Banker for Chg Fwd Documented by User: Fiona Miles MD 04/01/24 22:50 HPI - Altered Mental Status General: Chief Complaint: Altered Mental Status Stated Complaint: AMS Time Seen by Provider: 04/01/24 13:53 History of Present Illness: Patient presents here with increased altered mental status she is also had hypoxia here is requiring 5 L oxygen . EKGs here show no signs of ST elevation her D-dimer is quite elevated so was her BNP patient here is nonverbal but concerned she may have a pulmonary embolism we will get a CT angio chest patient started on a heparin drip here care turned over to Dr. Miles to follow-up on the CT of the chest. Patient also has an elevated troponin we will trend Related Data Home Medications Medication Instructions Recorded Confirmed potassium chloride 10 mEq 10 meq PO TID 12/27/19 03/30/24 tablet,extended release(part/cryst) bumetanide 0.5 mg tablet 0.5 mg PO BID PRN Edema 03/29/24 03/30/24 oxycodone 15 mg tablet 15 mg PO QID PRN Pain 03/29/24 03/30/24 omeprazole 20 mg capsule,delayed 20 mg PO BID 03/30/24 03/30/24 release sucralfate 1 gram tablet 1 g PO QID 03/30/24 03/30/24 Previous Rx's Medication Instructions Recorded nitrofurantoin 100 mg PO BID 7 days #14 caps 03/30/24 monohydrate/macrocrystals 100 mg capsule (Macrobid) Allergies Allergy/AdvReac Type Severity Reaction Status Date / Time No Known Allergies Allergy Verified 03/29/24 08:28 [facility] ED PFSH: Family History Father Cancer Other Diabetes Social History Smoking and tobacco/nicotine status: never used tobacco/nicotine Substance/Drug Use: never Course Vital Signs: Vital signs: Vital Signs Temperature 98.2 F 04/01/24 13:58 Pulse Rate 99 04/01/24 17:50 Respiratory Rate 18 04/01/24 13:58 Blood Pressure 147/86 04/01/24 17:00 Pulse Oximetry 99 04/01/24 17:50 Oxygen Delivery Me thod Nasal Cannula 04/01/24 17:50 Oxygen Flow Rate 5 04/01/24 17:50 MDM - Altered Mental Status Medical Decision Making Patient presents here with increased altered mental status she is also had hypoxia here is requiring 5 L oxygen . EKGs here show no signs of ST elevation her D-dimer is quite elevated so was her BNP patient here is nonverbal but concerned she may have a pulmonary embolism we will get a CT angio chest patient started on a heparin drip here care turned over to Dr. Miles to follow-up on the CT of the chest. Patient also has an elevated troponin we will trend Patient care was transitioned to il shift change. Patient was pending a CT scan and. Apparently she had received 0.5 mg of Ativan to help her tolerate the scan. She pain unresponsive, stopped breathing and pulseless in CT scanner. She was bagged and brought back to a trauma room where she was initially PEA and then asystole. Never regained a pulse. See nursing notes for full details of code. There was a niece and another family member present. The niece is very distraught. She was seen here 2 days ago and diagnosed with a urinary tract infection. Endotracheal intubation Confirmed: Patient, procedure, and site correct. Consent: , Emergent. Indication: Respiratory failure. Cardiac arrest Procedural sedation: Succinylcholine Monitoring: Cardiac, blood pressure, continuous pulse oximetry. Preparation: Pre oxygenated, Inline stabilization of cervical spine maintained, Ensured proper cuff inflation. Technique: Oral intubation: A 7.5 ET tube was inserted, glydescope, visualized cords and ett passing through cords. . Confirmation of tube placement: Bilateral chest rise, Positive color change indicated on end title CO2. Post procedure exam: Equal breath sounds. Complications: None. Performed by: Self. Total time: 5 minutes. Patient's time of was 183 on 04/01/24 I spoke with the family multiple times. They are quite distraught. Pastoral service also spoken with them. Lab Data 04/01/24 15:04 04/01/24 15:04 Radiology Impressions Chest X-Ray 04/01/24 14:00 Impression: 1. Opacity of right lung which probably represents a large right pleural effusion with possible shift of the heart and mediastinum from left to right. Pneumonia and atelectasis of the right lung may also be present. 2. Possible cardiomegaly with atherosclerosis. Head CT 04/01/24 17:36 IMPRESSION: No acute intracranial process. Chronic senescent changes. If there is continued clinical concern for an acute ischemic event then follow up with a brain MRI examination is recommended. Laboratory Results WBC 9.41 10^3/uL (3.29-11.43) 04/01/24 15:04 RBC 3.26 10^6/uL (3.85-5.65) L 04/01/24 15:04 Hgb 11.00 g/dL (11.27-16.99) L 04/01/24 15:04 Hct 34.6 % (36-47) L 04/01/24 15:04 MCV 106.1 fl (85-98) H 04/01/24 15:04 MCH 33.7 pg (27-33) H 04/01/24 15:04 MCHC 31.8 g/dL (30-55) 04/01/24 15:04 RDW 16.8 % (12.1-15.1) H 04/01/24 15:04 Plt Count 146 10^3/cmm (157-399) L 04/01/24 15:04 MPV 11.2 fL (7.4-10.4) H 04/01/24 15:04 Neut % (Auto) 90.6 % 04/01/24 15:04 Lymph % (Auto) 2.9 % 04/01/24 15:04 [place] % (Auto) 5.5 % 04/01/24 15:04 Eos % (Auto) 0.0 % 04/01/24 15:04 Baso % (Auto) 0.0 % 04/01/24 15:04 Neut # (Auto) 8.53 10^3/uL (1.8-7.7) H 04/01/24 15:04 Lymph # (Auto) 0.3 10^3/uL (0.8-4.8) L 04/01/24 15:04 [place] # (Auto) 0.5 10^3/uL (0.2-0.9) 04/01/24 15:04 Eos # (Auto) 0.0 10^3/uL (0.0-0.8) 04/01/24 15:04 Baso # (Auto) 0.0 10^3/uL (0.0-0.1) 04/01/24 15:04 Nucleated RBC % (auto) 0.9 % 04/01/24 15:04 Nucleated RBCs # 0.1 /100WBC 04/01/24 15:04 D-Dimer 12.37 ug/mLFEU (0-0.59) H 04/01/24 15:04 Specimen Type Arterial 04/01/24 14:50 Sample Site Radial, right 04/01/24 14:50 ABG pH 7.56 (7.35-7.45) H 04/01/24 14:50 ABG pCO2 25.7 mmHg (35-45) L 04/01/24 14:50 ABG pO2 84.9 mmHg (80.0-100.0) 04/01/24 14:50 ABG HCO3 23.2 mmol/L (22-26) 04/01/24 14:50 ABG Base Excess 1.9 mmol/L (-2.0-2.0) 04/01/24 14:50 [place] Test Pos 04/01/24 14:50 Hematocrit 34.7 % (37-47) L 04/01/24 14:50 O2 Delivery Device Not Reportable 04/01/24 14:50 Back Hoe Machine Operator ID [email or web address] 04/01/24 14:50 Blood Gas Notified Time 1505 04/01/24 14:50 Sodium 139 mmol/L (136-145) 04/01/24 15:04 Potassium 4.8 mmol/L (3.5-5.1) 04/01/24 15:04 Chloride 102 mmol/L (98-107) 04/01/24 15:04 Carbon Dioxide 23 mmol/L (22-29) 04/01/24 15:04 Anion Gap 18.8 (5-19) 04/01/24 15:04 BUN 29 mg/dL (8-23) H 04/01/24 15:04 Creatinine 1.4 mg/dL (0.5-0.9) H 04/01/24 15:04 GFR Calculation Not Reportable 04/01/24 15:04 Glucose 133 mg/dL (65-115) H 04/01/24 15:04 POC Glucose 79 mg/dL (70-110) 04/01/24 18:31 Calculated Osmolality 296 mOsm/kg (285-295) H 04/01/24 15:04 Calcium 8.2 mg/dL (8.5-10.5) L 04/01/24 15:04 Total Bilirubin 0.7 mg/dL (0.15-1.2) 04/01/24 15:04 AST 23 U/L (0-32) 04/01/24 15:04 ALT 12 U/L (0-33) 04/01/24 15:04 Alkaline Phosphatase 179 U/L (35-105) H 04/01/24 15:04 Troponin T Baseline 118 ng/L (0-10) H* 04/01/24 15:04 Troponin T 120 Minute 127.3 ng/L (0-10) H 04/01/24 17:40 Delta Troponin T 9.3 ABS# (0-10) 04/01/24 17:40 NT-Pro-B Natriuret Pep > 42040 pg/mL (0-125) H 04/01/24 15:04 Total Protein 5.4 g/dL (6.6-8.7) L 04/01/24 15:04 Albumin 2.9 g/dL (3.5-5.2) L 04/01/24 15:04 Globulin 2.5 g/dL (1.3-4.6) 04/01/24 15:04 Lipase 12 U/L (13-60) L 04/01/24 15:04 Urine Color [place] (Yellow) A 04/01/24 17:28 Urine Appearance Clear (CLEAR) 04/01/24 17:28 Urine pH 5.5 (5-7) 04/01/24 17:28 Ur Specific [place] 1.026 (1.005-1.030) 04/01/24 17:28 Urine Protein 4+ (Negative) A 04/01/24 17: Urine Glucose (UA) Negative (Normal) 04/01/24 17: Urine Ketones Trace (Negative) 04/01/24 17: Urine Blood 1+ (Negative) A 04/01/24 17: Urine Nitrate Negative (Negative) 04/01/24 17: Urine Bilirubin 1+ (Negative) H 04/01/24 17: Urine Urobilinogen 1.0 mg/dL (Negative) 04/01/24 17:28 Ur Leukocyte Esterase Trace (Negative) A 04/01/24 17:28 Urine RBC 3-5 /hpf (0-2) 04/01/24 17:28 Urine WBC 0-5 /hpf (0-5) 04/01/24 17:28 Ur Squamous Epith Cells 0-5 /hpf (0-5) 04/01/24 17:28 Amorphous Sediment Not Reportable 04/01/24 17:28 Urine Bacteria None seen /hpf (NONE) 04/01/24 17:28 Hyaline Casts 6.61 /lpf 04/01/24 17:28 Discharge Plan Discharge Patient Disposition: Clinical Impression: Cardiac arrest, Coding Level of Care Code ED Retail Personal Banker for Tomas Castanon
--- NOTE | 2024-04-01 14:18 | ECG_ITS ---
[facility]: [facility]24[facility]01 Pat Name: Rossana Lazo Department: Room: Gender: Female Apartment Groundskeeper: : 1950 Requested By: Carmen Hernandez Order Number: [id number] Az MD: Joey Cruz M.D. Measurements Intervals [place] Rate: 95 P: 54 [place]: 125 QRS: 51 QRSD: 129 T: 127 QT: 374 QTc: 472 Interpretive Statements SINUS RHYTHM SEPTAL MYOCARDIAL INFARCTION , OF INDETERMINATE AGE [40+ ms Q WAVE IN V1/V2] MODERATE T-WAVE ABNORMALITY, CONSIDER LATERAL ISCHEMIA [-0.1+ mV T-WAVE IN I/aVL/V5/V6] Compared to ECG 10/09/2017 12:01:29 T-wave abnormality now present Possible ischemia now present Electronically Signed On 04-01-2024 17:12:06 CDT by Joey Cruz M.D. [email or web address]
[2024-04-01 14:53] LABS: ABG PCO2 25.7 mmHg (35-45); ABG PH Result 7.56 (7.35-7.45); Arterial Blood Gas Hematocrit 34.7 % (37-47); Base Excess ABG 1.9 mmol/L (-2.0-2.0); Blood Gas Allen Test Pos; Blood Gas Operator Identificat glc; Blood Gas Sample Site Radial, right; Blood Gas Sample Type Arterial; HCO3 ABG 23.2 mmol/L (22-26); PO2 ABG 84.9 mmHg (80.0-100.0)
[2024-04-01 15:10] LABS: Blood Gas CCRB Time 1505
[2024-04-01 15:23] LABS: Hematocrit 34.6 % (36-47); Lymphocytes # 0.3 10^3/uL (0.8-4.8); Lymphocytes % 2.9 %; Mean Corpuscular HGB Conc 31.8 g/dL (30-55); Mean Corpuscular Hemoglobin 33.7 pg (27-33); Mean Corpuscular Volume 106.1 fl (85-98); Mean Platelet Volume 11.2 fL (7.4-10.4); Monocytes # 0.5 10^3/uL (0.2-0.9); Monocytes % 5.5 %; Neutrophils # 8.53 10^3/uL (1.8-7.7); Neutrophils % 90.6 %; Nucleated Red Blood Cells # 0.1 /100WBC; Nucleated Red Blood Cells % 0.9 %; Platelet Count 146 10^3/cmm (157-399); Red Blood Count 3.26 10^6/uL (3.85-5.65); Red Cell Distribution Width 16.8 % (12.1-15.1); White Blood Count 9.41 10^3/uL (3.29-11.43)
[2024-04-01 15:53] LABS: Troponin(5th) Baseline 118 ng/L (0-10)
[2024-04-01 15:59] LABS: Alanine Aminotransferase 12 U/L (0-33); Albumin Level 2.9 g/dL (3.5-5.2); Alkaline Phosphatase 179 U/L (35-105); Anion Gap 18.8 (5-19); Aspartate Amino Transferase 23 U/L (0-32); Blood Urea Nitrogen 29 mg/dL (8-23); Calcium 8.2 mg/dL (8.5-10.5); Carbon Dioxide 23 mmol/L (22-29); Chloride 102 mmol/L (98-107); Globulin 2.5 g/dL (1.3-4.6); Glucose 133 mg/dL (65-115); Lipase 12 U/L (13-60); Osmolality Calculated 296 mOsm/kg (285-295); Potassium 4.8 mmol/L (3.5-5.1); Sodium 139 mmol/L (136-145); Total Bilirubin 0.7 mg/dL (0.15-1.2); Total Protein 5.4 g/dL (6.6-8.7)
[2024-04-01 16:00] VITALS: BP 125/96; PULSE 94; O2SAT 95
[2024-04-01 16:22] LABS: NT Pro B Type Natriuretic Pept > 70000 pg/mL (0-125)
--- NOTE | 2024-04-01 16:24 | ECG_ITS ---
[facility] Date: 2024-04-01 Pat Name: Rossana Lazo Department: Room: Gender: Female Cheese Cooker: : 1950 Requested By: Carmen Hernandez Order Number: [id number] Reading MD: Joey Cruz M.D. Measurements Intervals [place] Rate: 96 P: 51 CT: 122 QRS: 31 QRSD: 133 T: 131 QT: 372 QTc: 470 Interpretive Statements SINUS RHYTHM INTRAVENTRICULAR CONDUCTION DELAY [130+ ms QRS DURATION] Compared to ECG 04/01/2024 14:18:26 Intraventricular conduction delay now present Electronically Signed On 04-01-2024 17:14:14 CDT by Joey Cruz M.D. [email or web address]
[2024-04-01 16:25] LABS: D Dimer 12.37 ug/mLFEU (0-0.59)
[2024-04-01 17:00] VITALS: BP 147/86; PULSE 89; O2SAT 95
[2024-04-01] MEDS: cefTRIAXone 1,000 mg SDV 1000 MG IVP (17:20)
[2024-04-01] MEDS: AZITHROMYCIN ADD-Vantage 500 MG in 0.9% NaCl ADD-Vantage 250 ML 250 MG IV (17:21)
[2024-04-01 17:30] VITALS: PULSE 95; O2SAT 98
--- NOTE | 2024-04-01 17:36 | CTR_ITS ---
PROCEDURE INFORMATION: Exam: CT Head Without Contrast Exam date and time: 04/01/2024 6:08 PM Age: 73 years old Clinical indication: Altered mental status/memory loss; Additional info: AMS TECHNIQUE: Imaging protocol: Computed tomography of the head without contrast. Radiation optimization: All CT scans at this facility use at least one of these dose optimization techniques: automated exposure control; mA and/or kV adjustment per patient size (includes targeted exams where dose is matched to clinical indication); or iterative reconstruction. COMPARISON: No relevant prior studies available. RADIATION DOSE METRICS: Total DLP (mGy-cm): 1048.98 FINDINGS: Brain: Age-related brain parenchymal atrophy. Areas of hypoattenuation in the periventricular and subcortical deep white matter likely on the basis of chronic microvascular ischemic changes. No acute intra cranial hemorrhage. No mass effect or midline shift. No definitive CT evidence of acute territorial infarction. Cerebral ventricles: Prominence of the lateral ventricular system likely on the basis of ex vacuo dilatation. Paranasal sinuses: Visualized sinuses are unremarkable. No fluid levels. Mastoid air cells: Visualized mastoid air cells are well aerated. Bones: Intact calvarium. Soft tissues: Unremarkable. CT/CT head wo con* [id number] IMPRESSION: No acute intracranial process. Chronic senescent changes. If there is continued clinical concern for an acute ischemic event then follow up with a brain MRI examination is recommended.
[2024-04-01 17:40] VITALS: PULSE 95; O2SAT 97
[2024-04-01 17:46] LABS: Bilirubin Urine 1+ (Negative); Blood Urine 1+ (Negative); Glucose Urine UA Negative (Normal); Ketones Urine Trace (Negative); Leukocyte Esterase Urine Trace (Negative); Nitrate Urine Negative (Negative); Protein Urine 4+ (Negative); Specific Gravity, Urine 1.026 (1.005-1.030); Urine Appearance Clear (CLEAR); pH Urine 5.5 (5-7)
[2024-04-01 17:50] VITALS: PULSE 99; O2SAT 99
[2024-04-01 17:50] LABS: Add Urine Microscopic? YES; Bacteria Urine None Seen /hpf; Hyaline Casts Urine 6.61 /lpf; Squamous Epithelial Cell Urine 0-5 /hpf (0-5); WBC Urine 0-5 /hpf (0-5)
--- NOTE | 2024-04-01 17:50 | PC.NURSE ---
PT FAMILY EDUCATED ON THE ORDERED DOSE OF 0.25MG OF ATIVAN IN ORDER TO OBTAIN A CT SCAN. ATIVAN ORDERED FOR PT TO BE ABLE TO TOLERATE CT DUE TO ALTERED MENTATION AND CONFUSION. PT FAMILY VERBALIZED UNDERSTANDING AND DENIED ANY FURTHER VERBALIZED QUESTIONS OR CONCERNS.
[2024-04-01] MEDS: LORazepam 2 mg/mL INJ 1 mL 0.5 MG IVP (17:54)
--- NOTE | 2024-04-01 17:55 | PC.NURSE ---
0.25MG ATIVAN GIVEN PRIOR TO CT DUE TO PT CONFUSION IN ORDER TO GET CT SCAN.
--- NOTE | 2024-04-01 18:05 | PC.NURSE ---
RESTRAINTS REMOVED PRIOR TO CT SCAN.
[2024-04-01 18:08] LABS: UA Slide Review UA Slide Review Perf; Urine Color Orange (Yellow)
[2024-04-01 18:10] LABS: Troponin 5 2HR Delta 9.3 ABS# (0-10)
[2024-04-01 18:11] LABS: Add Urine Culture? No
[2024-04-01 18:11] LABS: Troponin 5 2HR 127.3 ng/L (0-10)
[2024-04-01] MEDS: EPINEPHrine 0.1 mg/mL SYR 10 mL 1 MG IVP (18:26)
--- NOTE | 2024-04-01 18:41 | PC.NURSE ---
[facility] notified of patient in ER. Mr. Mendoza has released patient's body.
[2024-04-01 18:52] LABS: Glucose Point of Care 79 mg/dL (70-110)
--- NOTE | 2024-04-01 19:09 | PC.NURSE ---
184 [facility] has been notified, they will attempt to reach out to family.
--- NOTE | 2024-04-01 19:13 | PC.NURSE ---
PT WENT TO CT. CODE CALLED IN CT. 1824 COMPRESSIONS STARTED. 1825 1MG EPI GIVEN 1826 PULSE CHECK, ASYSTOLE 1827 100MG SUCCS GIVEN 1828 PULSE CHECK, PEA 1828 1MG EPI GIVEN 1830 PULSE CHECK, ASYSTOLE 1831 1MG EPI GIVEN 1832 PULSE CHECK, ASYSTOLE 1834 ASYSTOLE, 1MG EPI GIVEN 1835 ASYSTOLE, TOD 1835.
--- NOTE | 2024-04-01 21:34 | PC.NURSE ---
Jackie time 2100
== END 2024-04-01 18:36 | disposition expired ==
PROVIDERS: Emergency Medicine; Emergency Provider Emergency Medicine; PCP Family Medicine
DX: I46.9 Cardiac arrest, cause unspecified (principal)
CPT/HCPCS: 31500; 36415; 36416; 36600; 70450; 71045; 80053; 81001; 82803; 82962; 83690; 83880; 84484; 85025; 85378; 87040; 93005; 96365; 96366; 96375; 99291; 99292; J0171; J0330; J0456; J0696; J2060; J7050